=== PATIENT | female | born 1955 | race Caucasian/White ===

== ENCOUNTER 2021-03-05 08:08 | Inpatient (IN) ==
[2021-03-06] MEDS ORDERED: lisinopriL 5 MG TABLET PO PRN (13:53)
[2021-03-06] MEDS ORDERED: Famotidine 20 MG TABLET PO SCH (17:00)
[2021-03-06] MEDS ORDERED: carvediloL 6.25 MG TABLET PO SCH (17:00)
[2021-03-06] MEDS ORDERED: Hydrocortisone Rectal 2.5% CRM 28 GM TUBE RC PRN (17:45)
[2021-03-06] MEDS: carvediloL 6.25 MG TABLET PO SCH (17:54)
[2021-03-06] MEDS ORDERED: hydrOXYzine pamoate 25 MG CAPSULE PO PRN (17:56)
[2021-03-06] MEDS: Famotidine 20 MG TABLET PO SCH (21:06)
[2021-03-06] MEDS: Melatonin 3 MG TABLET PO SCH (21:06)
[2021-03-06] MEDS: Methyl Salicylate/Menthol 85 APPL/85 GM TUBE TP PRN (21:07)
[2021-03-06] MEDS: Mirtazapine 15 MG TABLET PO SCH (21:07)
[2021-03-07] MEDS: Acetaminophen 325 MG TABLET PO PRN ×2 (03:09→20:35)
[2021-03-07] MEDS: lisinopriL 5 MG TABLET PO SCH (07:57)
[2021-03-07] MEDS: FLUoxetine 20 MG CAPSULE PO SCH (07:57)
[2021-03-07] MEDS: Aspirin Enteric Coated 81 MG Tablet PO SCH (07:57)
[2021-03-07] MEDS: Famotidine 20 MG TABLET PO SCH ×2 (07:57→20:33)
[2021-03-07] MEDS: carvediloL 6.25 MG TABLET PO SCH ×2 (07:58→16:46)
[2021-03-07] MEDS: Temazepam 15 MG CAPSULE PO PRN (20:33)
[2021-03-07] MEDS: Melatonin 3 MG TABLET PO SCH (20:33)
[2021-03-07] MEDS: Mirtazapine 15 MG TABLET PO SCH (20:33)
[2021-03-07] MEDS: Methyl Salicylate/Menthol 85 APPL/85 GM TUBE TP PRN (20:34)
[2021-03-08] MEDS: lisinopriL 5 MG TABLET PO SCH (09:01)
[2021-03-08] MEDS: Aspirin Enteric Coated 81 MG Tablet PO SCH (09:01)
[2021-03-08] MEDS: FLUoxetine 20 MG CAPSULE PO SCH (09:01)
[2021-03-08] MEDS: carvediloL 6.25 MG TABLET PO SCH ×2 (09:04→16:45)
[2021-03-08] MEDS: Famotidine 20 MG TABLET PO SCH ×2 (09:04→20:57)
[2021-03-08] MEDS: Acetaminophen 325 MG TABLET PO PRN (11:32)
[2021-03-08] MEDS: Mirtazapine 15 MG TABLET PO SCH (20:57)
[2021-03-08] MEDS: Melatonin 3 MG TABLET PO SCH (20:57)
[2021-03-08] MEDS: Temazepam 15 MG CAPSULE PO PRN (20:57)
[2021-03-09] MEDS: lisinopriL 5 MG TABLET PO SCH (08:50)
[2021-03-09] MEDS: Aspirin Enteric Coated 81 MG Tablet PO SCH (08:51)
[2021-03-09] MEDS: FLUoxetine 20 MG CAPSULE PO SCH (08:51)
[2021-03-09] MEDS: Gabapentin 100 MG CAPSULE PO SCH ×3 (08:51→20:29)
[2021-03-09] MEDS: carvediloL 6.25 MG TABLET PO SCH ×2 (08:51→16:35)
[2021-03-09] MEDS: Famotidine 20 MG TABLET PO SCH ×2 (08:51→20:29)
[2021-03-09] MEDS: Acetaminophen 325 MG TABLET PO PRN (18:30)
[2021-03-09] MEDS: Melatonin 3 MG TABLET PO SCH (20:31)
[2021-03-09] MEDS: Mirtazapine 15 MG TABLET PO SCH (20:31)
[2021-03-10 08:06] LABS: Hematocrit 41.7 % (35.3-44.9); Mean Corpuscular HGB Conc 33.6 g/dL (31.6-35.5); Mean Corpuscular Hemoglobin 29.9 pg (28.0-33.3); Mean Corpuscular Volume 88.9 fL (83.0-100.0); Platelet Count 450 K/mcL (140-400); Red Blood Count 4.69 M/mcL (3.82-4.97); White Blood Count 9.6 K/mcL (4.3-11.1)
[2021-03-10 08:20] LABS: BUN/Creatinine Ratio 26 (6-26); Blood Urea Nitrogen 16 mg/dL (8-23); Calcium 9.6 mg/dL (8.6-10.3); Carbon Dioxide 27 mEq/L (23-29); Chloride 100 mEq/L (98-107); Glucose 110 mg/dL (70-105); Osmolality,Calculated 284 (280-300); Potassium 3.9 mEq/L (3.5-5.1); Sodium 136 mEq/L (136-145); eGFR For African Americans > 60 (> 60); eGFR For Non-African Americans > 60 (> 60)
[2021-03-10] MEDS: Famotidine 20 MG TABLET PO SCH ×2 (08:23→21:51)
[2021-03-10] MEDS: FLUoxetine 20 MG CAPSULE PO SCH (08:23)
[2021-03-10] MEDS: carvediloL 6.25 MG TABLET PO SCH ×2 (08:23→16:27)
[2021-03-10] MEDS: Gabapentin 100 MG CAPSULE PO SCH ×3 (08:23→21:50)
[2021-03-10] MEDS: Ergocalciferol (VIT D2) 50,000 UNIT (1.25MG) CAP PO SCH (08:23)
[2021-03-10] MEDS: Aspirin Enteric Coated 81 MG Tablet PO SCH (08:23)
[2021-03-10] MEDS: lisinopriL 5 MG TABLET PO SCH (08:23)
[2021-03-10] MEDS: Acetaminophen 325 MG TABLET PO PRN (13:05)
[2021-03-10] MEDS: Temazepam 15 MG CAPSULE PO PRN (21:51)
[2021-03-10] MEDS: Melatonin 3 MG TABLET PO SCH (21:51)
[2021-03-10] MEDS: Mirtazapine 15 MG TABLET PO SCH (21:51)
[2021-03-11] MEDS: Aspirin Enteric Coated 81 MG Tablet PO SCH (08:05)
[2021-03-11] MEDS: Gabapentin 100 MG CAPSULE PO SCH ×3 (08:05→21:38)
[2021-03-11] MEDS: Famotidine 20 MG TABLET PO SCH ×2 (08:05→21:38)
[2021-03-11] MEDS: FLUoxetine 20 MG CAPSULE PO SCH (08:06)
[2021-03-11] MEDS: Psyllium 1 PACKET POWD.PACK PO SCH ×3 (08:06→21:39)
[2021-03-11] MEDS: lisinopriL 5 MG TABLET PO SCH (08:06)
[2021-03-11] MEDS: carvediloL 6.25 MG TABLET PO SCH ×2 (08:06→15:58)
[2021-03-11] MEDS: Acetaminophen 325 MG TABLET PO PRN (09:35)
[2021-03-11] MEDS: Melatonin 3 MG TABLET PO SCH (21:38)
[2021-03-11] MEDS: Mirtazapine 15 MG TABLET PO SCH (21:41)
[2021-03-12] MEDS: Gabapentin 100 MG CAPSULE PO SCH ×3 (09:13→20:00)
[2021-03-12] MEDS: carvediloL 6.25 MG TABLET PO SCH ×2 (09:14→16:42)
[2021-03-12] MEDS: FLUoxetine 20 MG CAPSULE PO SCH (09:14)
[2021-03-12] MEDS: Famotidine 20 MG TABLET PO SCH ×2 (09:14→20:01)
[2021-03-12] MEDS: Aspirin Enteric Coated 81 MG Tablet PO SCH (09:15)
[2021-03-12] MEDS: Psyllium 1 PACKET POWD.PACK PO SCH ×3 (09:16→20:03)
[2021-03-12] MEDS: polyethylene glycoL 3350 17 GM POWD.PACK PO SCH (10:39)
[2021-03-12] MEDS: lisinopriL 5 MG TABLET PO SCH (10:39)
[2021-03-12] MEDS: Melatonin 3 MG TABLET PO SCH (20:00)
[2021-03-12] MEDS: Sennosides 8.6 MG TABLET PO SCH (20:00)
[2021-03-12] MEDS: Temazepam 15 MG CAPSULE PO PRN (20:00)
[2021-03-12] MEDS: Mirtazapine 15 MG TABLET PO SCH (20:01)
[2021-03-13] MEDS: Gabapentin 100 MG CAPSULE PO SCH ×3 (08:52→20:46)
[2021-03-13] MEDS: Famotidine 20 MG TABLET PO SCH ×2 (08:52→20:47)
[2021-03-13] MEDS: FLUoxetine 20 MG CAPSULE PO SCH (08:52)
[2021-03-13] MEDS: carvediloL 6.25 MG TABLET PO SCH ×2 (08:52→17:34)
[2021-03-13] MEDS: lisinopriL 5 MG TABLET PO SCH (08:52)
[2021-03-13] MEDS: Sennosides 8.6 MG TABLET PO SCH ×2 (08:52→20:47)
[2021-03-13] MEDS: Aspirin Enteric Coated 81 MG Tablet PO SCH (08:52)
[2021-03-13] MEDS: Psyllium 1 PACKET POWD.PACK PO SCH ×3 (08:52→20:47)
[2021-03-13] MEDS: polyethylene glycoL 3350 17 GM POWD.PACK PO SCH (09:00)
[2021-03-13] MEDS: Mirtazapine 15 MG TABLET PO SCH ×2 (20:47→23:27)
[2021-03-13] MEDS: Melatonin 3 MG TABLET PO SCH (20:47)
[2021-03-13] MEDS: Temazepam 15 MG CAPSULE PO PRN (20:53)
[2021-03-14] MEDS: Aspirin Enteric Coated 81 MG Tablet PO SCH (08:38)
[2021-03-14] MEDS: FLUoxetine 20 MG CAPSULE PO SCH (08:38)
[2021-03-14] MEDS: carvediloL 6.25 MG TABLET PO SCH ×2 (08:38→16:09)
[2021-03-14] MEDS: lisinopriL 5 MG TABLET PO SCH (08:38)
[2021-03-14] MEDS: Sennosides 8.6 MG TABLET PO SCH ×2 (08:38→21:15)
[2021-03-14] MEDS: polyethylene glycoL 3350 17 GM POWD.PACK PO SCH (08:39)
[2021-03-14] MEDS: Psyllium 1 PACKET POWD.PACK PO SCH ×3 (08:39→21:26)
[2021-03-14] MEDS: Famotidine 20 MG TABLET PO SCH ×2 (08:39→21:26)
[2021-03-14] MEDS: Gabapentin 100 MG CAPSULE PO SCH ×3 (08:39→21:26)
[2021-03-14] MEDS: Mirtazapine 15 MG TABLET PO SCH (21:14)
[2021-03-14] MEDS: Temazepam 15 MG CAPSULE PO PRN (21:26)
[2021-03-14] MEDS: Melatonin 3 MG TABLET PO SCH (21:26)
[2021-03-15 08:18] LABS: Basophils # 0.1 K/mcL (0.0-0.2); Basophils % 0.8 %; Eosinophils # 0.2 K/mcL (0.0-0.6); Eosinophils % 2.8 %; Hematocrit 36.3 % (35.3-44.9); Hemoglobin 12.1 g/dL (11.5-15.4); Immature Granulocytes % 0.3 % (0-4); Lymphocytes # 2.4 K/mcL (0.6-4.6); Lymphocytes % 38.4 %; Mean Corpuscular HGB Conc 33.3 g/dL (31.6-35.5); Mean Corpuscular Hemoglobin 30.1 pg (28.0-33.3); Mean Corpuscular Volume 90.3 fL (83.0-100.0); Mean Platelet Volume 10.8 fL (9.4-12.4); Monocytes # 0.5 K/mcL (0.0-1.3); Monocytes % 8.7 %; Platelet Count 242 K/mcL (140-400); Red Blood Count 4.02 M/mcL (3.82-4.97); Red Cell Distribution Width 13.1 % (11.5-14.5); White Blood Count 6.1 K/mcL (4.3-11.1)
[2021-03-15 08:59] LABS: BUN/Creatinine Ratio 15 (6-26); Blood Urea Nitrogen 9 mg/dL (8-23); Carbon Dioxide 26 mEq/L (23-29); Chloride 105 mEq/L (98-107); Glucose 98 mg/dL (70-105); Osmolality,Calculated 289 (280-300); Potassium 4.2 mEq/L (3.5-5.1); Sodium 140 mEq/L (136-145); eGFR For African Americans > 60 (> 60); eGFR For Non-African Americans > 60 (> 60)
[2021-03-15] MEDS: Aspirin Enteric Coated 81 MG Tablet PO SCH (09:05)
[2021-03-15] MEDS: FLUoxetine 20 MG CAPSULE PO SCH (09:05)
[2021-03-15] MEDS: Gabapentin 100 MG CAPSULE PO SCH ×3 (09:05→20:10)
[2021-03-15] MEDS: carvediloL 6.25 MG TABLET PO SCH ×2 (09:06→15:03)
[2021-03-15] MEDS: Sennosides 8.6 MG TABLET PO SCH ×2 (09:06→20:11)
[2021-03-15] MEDS: lisinopriL 5 MG TABLET PO SCH (09:06)
[2021-03-15] MEDS: Famotidine 20 MG TABLET PO SCH ×2 (09:06→20:10)
[2021-03-15] MEDS: Psyllium 1 PACKET POWD.PACK PO SCH ×3 (09:07→20:11)
[2021-03-15] MEDS: polyethylene glycoL 3350 17 GM POWD.PACK PO SCH (09:11)
[2021-03-15] MEDS: Mirtazapine 15 MG TABLET PO SCH (19:58)
[2021-03-15] MEDS: Melatonin 3 MG TABLET PO SCH (20:10)
[2021-03-15] MEDS: Temazepam 15 MG CAPSULE PO PRN (20:10)
[2021-03-16] MEDS: Sennosides 8.6 MG TABLET PO SCH ×2 (08:52→21:40)
[2021-03-16] MEDS: lisinopriL 5 MG TABLET PO SCH (08:52)
[2021-03-16] MEDS: FLUoxetine 20 MG CAPSULE PO SCH (08:52)
[2021-03-16] MEDS: Famotidine 20 MG TABLET PO SCH ×2 (08:52→21:39)
[2021-03-16] MEDS: carvediloL 6.25 MG TABLET PO SCH ×2 (08:53→17:24)
[2021-03-16] MEDS: Aspirin Enteric Coated 81 MG Tablet PO SCH (08:53)
[2021-03-16] MEDS: Gabapentin 100 MG CAPSULE PO SCH ×3 (08:53→21:39)
[2021-03-16] MEDS: polyethylene glycoL 3350 17 GM POWD.PACK PO SCH (08:54)
[2021-03-16] MEDS: Psyllium 1 PACKET POWD.PACK PO SCH ×3 (08:57→21:40)
[2021-03-16] MEDS: Melatonin 3 MG TABLET PO SCH (21:39)
[2021-03-16] MEDS: Temazepam 15 MG CAPSULE PO PRN (21:39)
[2021-03-16] MEDS: Mirtazapine 15 MG TABLET PO SCH (21:40)
[2021-03-17] MEDS: Famotidine 20 MG TABLET PO SCH ×2 (08:46→20:21)
[2021-03-17] MEDS: Gabapentin 100 MG CAPSULE PO SCH ×3 (08:46→20:21)
[2021-03-17] MEDS: Sennosides 8.6 MG TABLET PO SCH ×2 (08:46→20:21)
[2021-03-17] MEDS: FLUoxetine 20 MG CAPSULE PO SCH (08:47)
[2021-03-17] MEDS: lisinopriL 5 MG TABLET PO SCH (08:47)
[2021-03-17] MEDS: carvediloL 6.25 MG TABLET PO SCH ×2 (08:47→16:54)
[2021-03-17] MEDS: Psyllium 1 PACKET POWD.PACK PO SCH ×3 (08:48→20:22)
[2021-03-17] MEDS: Aspirin Enteric Coated 81 MG Tablet PO SCH (08:48)
[2021-03-17] MEDS: polyethylene glycoL 3350 17 GM POWD.PACK PO SCH (08:49)
[2021-03-17] MEDS: Ergocalciferol (VIT D2) 50,000 UNIT (1.25MG) CAP PO SCH (08:54)
[2021-03-17] MEDS: Hydrocortisone Acetate 25 MG RECTAL SUPPOSITORY RC SCH ×2 (09:25→20:22)
[2021-03-17] MEDS: Temazepam 15 MG CAPSULE PO PRN (20:21)
[2021-03-17] MEDS: Melatonin 3 MG TABLET PO SCH (20:21)
[2021-03-17] MEDS: Mirtazapine 15 MG TABLET PO SCH (20:22)
[2021-03-18] MEDS: polyethylene glycoL 3350 17 GM POWD.PACK PO SCH (09:30)
[2021-03-18] MEDS: carvediloL 6.25 MG TABLET PO SCH ×2 (09:31→16:02)
[2021-03-18] MEDS: lisinopriL 5 MG TABLET PO SCH (09:31)
[2021-03-18] MEDS: Psyllium 1 PACKET POWD.PACK PO SCH ×3 (09:31→20:32)
[2021-03-18] MEDS: FLUoxetine 20 MG CAPSULE PO SCH (09:31)
[2021-03-18] MEDS: Gabapentin 100 MG CAPSULE PO SCH ×3 (09:32→20:33)
[2021-03-18] MEDS: Sennosides 8.6 MG TABLET PO SCH ×2 (09:33→20:33)
[2021-03-18] MEDS: Aspirin Enteric Coated 81 MG Tablet PO SCH (09:33)
[2021-03-18] MEDS: Famotidine 20 MG TABLET PO SCH ×2 (09:33→20:33)
[2021-03-18] MEDS: Hydrocortisone Acetate 25 MG RECTAL SUPPOSITORY RC SCH (12:51)
[2021-03-18] MEDS: Melatonin 3 MG TABLET PO SCH (21:42)
[2021-03-18] MEDS: Temazepam 15 MG CAPSULE PO PRN (21:42)
[2021-03-19] MEDS: lisinopriL 5 MG TABLET PO SCH (08:56)
[2021-03-19] MEDS: carvediloL 6.25 MG TABLET PO SCH ×2 (08:56→16:00)
[2021-03-19] MEDS: Aspirin Enteric Coated 81 MG Tablet PO SCH (08:56)
[2021-03-19] MEDS: Gabapentin 100 MG CAPSULE PO SCH ×3 (08:56→20:15)
[2021-03-19] MEDS: FLUoxetine 20 MG CAPSULE PO SCH (08:57)
[2021-03-19] MEDS: Psyllium 1 PACKET POWD.PACK PO SCH ×3 (08:57→20:13)
[2021-03-19] MEDS: Sennosides 8.6 MG TABLET PO SCH ×2 (08:57→20:14)
[2021-03-19] MEDS: Famotidine 20 MG TABLET PO SCH ×2 (08:57→20:15)
[2021-03-19] MEDS: polyethylene glycoL 3350 17 GM POWD.PACK PO SCH (08:57)
[2021-03-19] MEDS: Bisacodyl 10 MG RECTAL SUPPOSITORY RC PRN (10:03)
[2021-03-19] MEDS: Temazepam 15 MG CAPSULE PO PRN (20:15)
[2021-03-19] MEDS: Melatonin 3 MG TABLET PO SCH (20:15)
[2021-03-20] MEDS: Sennosides 8.6 MG TABLET PO SCH ×2 (09:08→21:14)
[2021-03-20] MEDS: Famotidine 20 MG TABLET PO SCH ×2 (09:09→21:13)
[2021-03-20] MEDS: carvediloL 6.25 MG TABLET PO SCH ×2 (09:09→15:58)
[2021-03-20] MEDS: Gabapentin 100 MG CAPSULE PO SCH ×3 (09:10→21:14)
[2021-03-20] MEDS: FLUoxetine 20 MG CAPSULE PO SCH (09:10)
[2021-03-20] MEDS: Aspirin Enteric Coated 81 MG Tablet PO SCH (09:11)
[2021-03-20] MEDS: lisinopriL 5 MG TABLET PO SCH (09:11)
[2021-03-20] MEDS: Psyllium 1 PACKET POWD.PACK PO SCH ×3 (09:13→21:14)
[2021-03-20] MEDS: polyethylene glycoL 3350 17 GM POWD.PACK PO SCH (09:13)
[2021-03-20] MEDS: Melatonin 3 MG TABLET PO SCH (21:13)
[2021-03-20] MEDS: Temazepam 15 MG CAPSULE PO PRN (21:13)
[2021-03-21] MEDS: carvediloL 6.25 MG TABLET PO SCH ×2 (10:05→16:20)
[2021-03-21] MEDS: lisinopriL 5 MG TABLET PO SCH (10:05)
[2021-03-21] MEDS: Gabapentin 100 MG CAPSULE PO SCH ×3 (10:05→19:23)
[2021-03-21] MEDS: Famotidine 20 MG TABLET PO SCH ×2 (10:05→19:23)
[2021-03-21] MEDS: Sennosides 8.6 MG TABLET PO SCH ×2 (10:05→19:25)
[2021-03-21] MEDS: FLUoxetine 20 MG CAPSULE PO SCH (10:05)
[2021-03-21] MEDS: Aspirin Enteric Coated 81 MG Tablet PO SCH (10:05)
[2021-03-21] MEDS: polyethylene glycoL 3350 17 GM POWD.PACK PO SCH (10:10)
[2021-03-21] MEDS: Psyllium 1 PACKET POWD.PACK PO SCH ×3 (10:10→19:24)
[2021-03-21] MEDS: Temazepam 15 MG CAPSULE PO PRN (19:23)
[2021-03-21] MEDS: Melatonin 3 MG TABLET PO SCH (19:23)
[2021-03-22] MEDS: polyethylene glycoL 3350 17 GM POWD.PACK PO SCH (08:24)
[2021-03-22] MEDS: Psyllium 1 PACKET POWD.PACK PO SCH ×3 (08:24→20:02)
[2021-03-22] MEDS: lisinopriL 5 MG TABLET PO SCH (08:24)
[2021-03-22] MEDS: Sennosides 8.6 MG TABLET PO SCH ×2 (08:25→20:02)
[2021-03-22] MEDS: Famotidine 20 MG TABLET PO SCH ×2 (08:25→20:01)
[2021-03-22] MEDS: Aspirin Enteric Coated 81 MG Tablet PO SCH (08:25)
[2021-03-22] MEDS: Gabapentin 100 MG CAPSULE PO SCH ×3 (08:25→20:01)
[2021-03-22] MEDS: carvediloL 6.25 MG TABLET PO SCH ×2 (08:25→17:04)
[2021-03-22] MEDS: FLUoxetine 20 MG CAPSULE PO SCH (08:25)
[2021-03-22] MEDS: Sucralfate 1 GM TABLET PO SCH ×3 (13:27→21:00)
[2021-03-22] MEDS: Temazepam 15 MG CAPSULE PO PRN (20:01)
[2021-03-22] MEDS: Melatonin 3 MG TABLET PO SCH (20:02)
[2021-03-23] MEDS: polyethylene glycoL 3350 17 GM POWD.PACK PO SCH (08:29)
[2021-03-23] MEDS: Psyllium 1 PACKET POWD.PACK PO SCH ×3 (08:29→21:05)
[2021-03-23] MEDS: FLUoxetine 20 MG CAPSULE PO SCH (08:30)
[2021-03-23] MEDS: Aspirin Enteric Coated 81 MG Tablet PO SCH (08:30)
[2021-03-23] MEDS: Sucralfate 1 GM TABLET PO SCH ×4 (08:30→21:06)
[2021-03-23] MEDS: Sennosides 8.6 MG TABLET PO SCH ×2 (08:30→21:05)
[2021-03-23] MEDS: lisinopriL 5 MG TABLET PO SCH (08:31)
[2021-03-23] MEDS: Famotidine 20 MG TABLET PO SCH ×2 (08:32→21:06)
[2021-03-23] MEDS: carvediloL 6.25 MG TABLET PO SCH ×2 (08:32→16:33)
[2021-03-23] MEDS: Gabapentin 100 MG CAPSULE PO SCH ×3 (08:32→21:06)
[2021-03-23] MEDS: Melatonin 3 MG TABLET PO SCH (21:05)
[2021-03-23] MEDS: Temazepam 15 MG CAPSULE PO PRN (21:13)
[2021-03-24] MEDS: Sennosides 8.6 MG TABLET PO SCH ×2 (08:06→20:40)
[2021-03-24] MEDS: Aspirin Enteric Coated 81 MG Tablet PO SCH (08:07)
[2021-03-24] MEDS: carvediloL 6.25 MG TABLET PO SCH ×2 (08:07→16:13)
[2021-03-24] MEDS: lisinopriL 5 MG TABLET PO SCH (08:07)
[2021-03-24] MEDS: polyethylene glycoL 3350 17 GM POWD.PACK PO SCH (08:07)
[2021-03-24] MEDS: Gabapentin 100 MG CAPSULE PO SCH ×3 (08:07→20:40)
[2021-03-24] MEDS: FLUoxetine 20 MG CAPSULE PO SCH (08:07)
[2021-03-24] MEDS: Psyllium 1 PACKET POWD.PACK PO SCH ×3 (08:07→20:40)
[2021-03-24] MEDS: Sucralfate 1 GM TABLET PO SCH ×4 (08:10→21:52)
[2021-03-24] MEDS: Ergocalciferol (VIT D2) 50,000 UNIT (1.25MG) CAP PO SCH (08:15)
[2021-03-24] MEDS: Bisacodyl 10 MG RECTAL SUPPOSITORY RC PRN (16:13)
[2021-03-24] MEDS: Melatonin 3 MG TABLET PO SCH (20:41)
[2021-03-24] MEDS: Temazepam 15 MG CAPSULE PO PRN (23:10)
[2021-03-25] MEDS: Sennosides 8.6 MG TABLET PO SCH ×2 (07:50→20:23)
[2021-03-25] MEDS: Gabapentin 100 MG CAPSULE PO SCH ×3 (07:50→20:26)
[2021-03-25] MEDS: polyethylene glycoL 3350 17 GM POWD.PACK PO SCH (07:50)
[2021-03-25] MEDS: Psyllium 1 PACKET POWD.PACK PO SCH ×3 (07:50→20:23)
[2021-03-25] MEDS: FLUoxetine 20 MG CAPSULE PO SCH (07:50)
[2021-03-25] MEDS: Aspirin Enteric Coated 81 MG Tablet PO SCH (07:50)
[2021-03-25] MEDS: lisinopriL 5 MG TABLET PO SCH (07:51)
[2021-03-25] MEDS: carvediloL 6.25 MG TABLET PO SCH ×2 (07:51→16:48)
[2021-03-25] MEDS: Sucralfate 1 GM TABLET PO SCH (07:51)
[2021-03-25] MEDS: Temazepam 15 MG CAPSULE PO PRN (20:24)
[2021-03-25] MEDS: Melatonin 3 MG TABLET PO SCH (20:26)
[2021-03-26] MEDS: Sennosides 8.6 MG TABLET PO SCH ×2 (07:59→20:53)
[2021-03-26] MEDS: carvediloL 6.25 MG TABLET PO SCH ×2 (07:59→16:32)
[2021-03-26] MEDS: lisinopriL 5 MG TABLET PO SCH (07:59)
[2021-03-26] MEDS: polyethylene glycoL 3350 17 GM POWD.PACK PO SCH (07:59)
[2021-03-26] MEDS: FLUoxetine 20 MG CAPSULE PO SCH (07:59)
[2021-03-26] MEDS: Psyllium 1 PACKET POWD.PACK PO SCH ×3 (07:59→20:53)
[2021-03-26] MEDS: Gabapentin 100 MG CAPSULE PO SCH ×3 (07:59→20:53)
[2021-03-26] MEDS: Aspirin Enteric Coated 81 MG Tablet PO SCH (07:59)
[2021-03-26] MEDS: Temazepam 15 MG CAPSULE PO PRN (20:52)
[2021-03-26] MEDS: *HR* HYDROcodone/Acet 5/325 mg TABLET PO PRN (20:52)
[2021-03-26] MEDS: Melatonin 3 MG TABLET PO SCH (20:53)
[2021-03-27] MEDS: lisinopriL 5 MG TABLET PO SCH (09:28)
[2021-03-27] MEDS: polyethylene glycoL 3350 17 GM POWD.PACK PO SCH (09:28)
[2021-03-27] MEDS: Psyllium 1 PACKET POWD.PACK PO SCH ×3 (09:28→20:45)
[2021-03-27] MEDS: Sennosides 8.6 MG TABLET PO SCH ×2 (09:29→20:45)
[2021-03-27] MEDS: Aspirin Enteric Coated 81 MG Tablet PO SCH (09:29)
[2021-03-27] MEDS: FLUoxetine 20 MG CAPSULE PO SCH (09:29)
[2021-03-27] MEDS: Gabapentin 100 MG CAPSULE PO SCH ×3 (09:29→20:45)
[2021-03-27] MEDS: carvediloL 6.25 MG TABLET PO SCH ×2 (09:29→17:14)
[2021-03-27] MEDS: Temazepam 15 MG CAPSULE PO PRN (20:44)
[2021-03-27] MEDS: Melatonin 3 MG TABLET PO SCH (20:45)
[2021-03-28] MEDS: *HR* HYDROcodone/Acet 5/325 mg TABLET PO PRN ×2 (00:22→18:12)
[2021-03-28 08:13] LABS: Basophils % 0.7 %; Eosinophils # 0.2 K/mcL (0.0-0.6); Eosinophils % 2.9 %; Hematocrit 38.1 % (35.3-44.9); Hemoglobin 12.5 g/dL (11.5-15.4); Immature Granulocytes % 0.7 % (0-4); Lymphocytes # 2.5 K/mcL (0.6-4.6); Lymphocytes % 42.1 %; Mean Corpuscular HGB Conc 32.8 g/dL (31.6-35.5); Mean Corpuscular Hemoglobin 29.9 pg (28.0-33.3); Mean Corpuscular Volume 91.1 fL (83.0-100.0); Mean Platelet Volume 10.3 fL (9.4-12.4); Monocytes # 0.4 K/mcL (0.0-1.3); Monocytes % 6.4 %; Neutrophils # 2.8 K/mcL (1.6-8.9); Platelet Count 149 K/mcL (140-400); Red Blood Count 4.18 M/mcL (3.82-4.97); Red Cell Distribution Width 13.2 % (11.5-14.5); Segmented Neutrophils % 47.2 %; White Blood Count 5.8 K/mcL (4.3-11.1)
[2021-03-28 08:28] LABS: BUN/Creatinine Ratio 15 (6-26); Blood Urea Nitrogen 9 mg/dL (8-23); Calcium 8.8 mg/dL (8.6-10.3); Carbon Dioxide 29 mEq/L (23-29); Chloride 104 mEq/L (98-107); Glucose 96 mg/dL (70-105); Osmolality,Calculated 287 (280-300); Potassium 4.1 mEq/L (3.5-5.1); Sodium 139 mEq/L (136-145); eGFR For African Americans > 60 (> 60); eGFR For Non-African Americans > 60 (> 60)
[2021-03-28] MEDS: Psyllium 1 PACKET POWD.PACK PO SCH ×3 (09:35→20:53)
[2021-03-28] MEDS: carvediloL 6.25 MG TABLET PO SCH ×2 (09:35→17:08)
[2021-03-28] MEDS: polyethylene glycoL 3350 17 GM POWD.PACK PO SCH (09:35)
[2021-03-28] MEDS: lisinopriL 5 MG TABLET PO SCH (09:36)
[2021-03-28] MEDS: Aspirin Enteric Coated 81 MG Tablet PO SCH (09:36)
[2021-03-28] MEDS: Sennosides 8.6 MG TABLET PO SCH ×2 (09:36→20:53)
[2021-03-28] MEDS: FLUoxetine 20 MG CAPSULE PO SCH (09:37)
[2021-03-28] MEDS: Gabapentin 100 MG CAPSULE PO SCH ×3 (09:37→20:53)
[2021-03-28] MEDS: Melatonin 3 MG TABLET PO SCH (20:53)
[2021-03-28] MEDS: Temazepam 15 MG CAPSULE PO PRN (20:53)
[2021-03-29] MEDS: *HR* HYDROcodone/Acet 5/325 mg TABLET PO PRN ×3 (03:12→20:47)
[2021-03-29] MEDS: polyethylene glycoL 3350 17 GM POWD.PACK PO SCH (09:06)
[2021-03-29] MEDS: Psyllium 1 PACKET POWD.PACK PO SCH ×3 (09:06→20:47)
[2021-03-29] MEDS: Sennosides 8.6 MG TABLET PO SCH ×2 (09:08→20:47)
[2021-03-29] MEDS: Aspirin Enteric Coated 81 MG Tablet PO SCH (09:09)
[2021-03-29] MEDS: carvediloL 6.25 MG TABLET PO SCH ×2 (09:10→17:35)
[2021-03-29] MEDS: Gabapentin 100 MG CAPSULE PO SCH ×3 (09:10→20:47)
[2021-03-29] MEDS: FLUoxetine 20 MG CAPSULE PO SCH (09:10)
[2021-03-29] MEDS: lisinopriL 5 MG TABLET PO SCH (10:32)
[2021-03-29] MEDS: Melatonin 3 MG TABLET PO SCH (20:47)
[2021-03-29] MEDS: Temazepam 15 MG CAPSULE PO PRN (20:47)
[2021-03-30] MEDS: *HR* HYDROcodone/Acet 5/325 mg TABLET PO PRN ×3 (05:12→20:22)
[2021-03-30] MEDS: Sennosides 8.6 MG TABLET PO SCH ×2 (09:10→20:22)
[2021-03-30] MEDS: Aspirin Enteric Coated 81 MG Tablet PO SCH (09:10)
[2021-03-30] MEDS: Gabapentin 100 MG CAPSULE PO SCH ×3 (09:11→20:23)
[2021-03-30] MEDS: lisinopriL 5 MG TABLET PO SCH (09:11)
[2021-03-30] MEDS: Psyllium 1 PACKET POWD.PACK PO SCH ×3 (09:12→20:24)
[2021-03-30] MEDS: carvediloL 6.25 MG TABLET PO SCH ×2 (09:12→17:18)
[2021-03-30] MEDS: polyethylene glycoL 3350 17 GM POWD.PACK PO SCH (09:12)
[2021-03-30] MEDS: FLUoxetine 20 MG CAPSULE PO SCH (09:16)
[2021-03-30] MEDS: Temazepam 15 MG CAPSULE PO PRN (20:22)
[2021-03-30] MEDS: Melatonin 3 MG TABLET PO SCH (20:23)
[2021-03-31] MEDS: Sennosides 8.6 MG TABLET PO SCH ×2 (08:31→20:54)
[2021-03-31] MEDS: FLUoxetine HCl 10 MG CAPSULE PO SCH (08:31)
[2021-03-31] MEDS: Gabapentin 100 MG CAPSULE PO SCH ×3 (08:32→20:54)
[2021-03-31] MEDS: carvediloL 6.25 MG TABLET PO SCH ×2 (08:32→16:35)
[2021-03-31] MEDS: lisinopriL 5 MG TABLET PO SCH (08:33)
[2021-03-31] MEDS: Psyllium 1 PACKET POWD.PACK PO SCH ×3 (08:33→20:55)
[2021-03-31] MEDS: Aspirin Enteric Coated 81 MG Tablet PO SCH (08:33)
[2021-03-31] MEDS: polyethylene glycoL 3350 17 GM POWD.PACK PO SCH (08:34)
[2021-03-31] MEDS: Ergocalciferol (VIT D2) 50,000 UNIT (1.25MG) CAP PO SCH (08:41)
[2021-03-31] MEDS: *HR* HYDROcodone/Acet 5/325 mg TABLET PO PRN ×2 (08:42→17:38)
[2021-03-31] MEDS: Neosporin OINT 15 GM TUBE TP SCH ×2 (12:08→20:54)
[2021-03-31] MEDS: Melatonin 3 MG TABLET PO SCH (20:54)
[2021-03-31] MEDS: Temazepam 15 MG CAPSULE PO PRN (20:54)
[2021-04-01] MEDS: *HR* HYDROcodone/Acet 5/325 mg TABLET PO PRN ×3 (01:43→17:14)
[2021-04-01] MEDS: Sennosides 8.6 MG TABLET PO SCH ×2 (08:36→20:54)
[2021-04-01] MEDS: FLUoxetine HCl 10 MG CAPSULE PO SCH (08:36)
[2021-04-01] MEDS: lisinopriL 5 MG TABLET PO SCH (08:36)
[2021-04-01] MEDS: carvediloL 6.25 MG TABLET PO SCH ×2 (08:36→17:14)
[2021-04-01] MEDS: Gabapentin 100 MG CAPSULE PO SCH ×3 (08:37→20:58)
[2021-04-01] MEDS: Psyllium 1 PACKET POWD.PACK PO SCH ×3 (08:37→20:54)
[2021-04-01] MEDS: polyethylene glycoL 3350 17 GM POWD.PACK PO SCH (08:37)
[2021-04-01] MEDS: Aspirin Enteric Coated 81 MG Tablet PO SCH (08:37)
[2021-04-01] MEDS: Neosporin OINT 15 GM TUBE TP SCH ×2 (08:44→20:59)
[2021-04-01] MEDS: Melatonin 3 MG TABLET PO SCH (20:58)
[2021-04-01] MEDS: Temazepam 15 MG CAPSULE PO PRN (20:58)
[2021-04-02] MEDS: *HR* HYDROcodone/Acet 5/325 mg TABLET PO PRN ×4 (00:58→23:56)
[2021-04-02] MEDS: FLUoxetine HCl 10 MG CAPSULE PO SCH (08:45)
[2021-04-02] MEDS: Psyllium 1 PACKET POWD.PACK PO SCH ×3 (08:53→20:35)
[2021-04-02] MEDS: Aspirin Enteric Coated 81 MG Tablet PO SCH (08:53)
[2021-04-02] MEDS: polyethylene glycoL 3350 17 GM POWD.PACK PO SCH (08:53)
[2021-04-02] MEDS: Sennosides 8.6 MG TABLET PO SCH ×2 (08:53→20:34)
[2021-04-02] MEDS: carvediloL 6.25 MG TABLET PO SCH ×2 (08:54→15:47)
[2021-04-02] MEDS: Gabapentin 100 MG CAPSULE PO SCH ×3 (08:54→20:34)
[2021-04-02] MEDS: lisinopriL 5 MG TABLET PO SCH (08:54)
[2021-04-02] MEDS: Neosporin OINT 15 GM TUBE TP SCH ×2 (13:08→20:36)
[2021-04-02] MEDS: Temazepam 15 MG CAPSULE PO PRN (20:34)
[2021-04-02] MEDS: Melatonin 3 MG TABLET PO SCH (20:34)
[2021-04-03] MEDS: *HR* HYDROcodone/Acet 5/325 mg TABLET PO PRN ×3 (06:02→18:07)
[2021-04-03 07:26] LABS: Basophils % 0.6 %; Eosinophils # 0.1 K/mcL (0.0-0.6); Eosinophils % 2.3 %; Hematocrit 37.3 % (35.3-44.9); Hemoglobin 12.4 g/dL (11.5-15.4); Immature Granulocytes % 0.8 % (0-4); Lymphocytes # 2.3 K/mcL (0.6-4.6); Lymphocytes % 43.7 %; Mean Corpuscular HGB Conc 33.2 g/dL (31.6-35.5); Mean Corpuscular Hemoglobin 30.3 pg (28.0-33.3); Mean Corpuscular Volume 91.2 fL (83.0-100.0); Monocytes # 0.4 K/mcL (0.0-1.3); Monocytes % 7.4 %; Neutrophils # 2.4 K/mcL (1.6-8.9); Platelet Count 156 K/mcL (140-400); Red Blood Count 4.09 M/mcL (3.82-4.97); Red Cell Distribution Width 13.7 % (11.5-14.5); Segmented Neutrophils % 45.2 %; White Blood Count 5.2 K/mcL (4.3-11.1)
[2021-04-03 07:54] LABS: BUN/Creatinine Ratio 19 (6-26); Blood Urea Nitrogen 10 mg/dL (8-23); Carbon Dioxide 28 mEq/L (23-29); Chloride 105 mEq/L (98-107); Glucose 95 mg/dL (70-105); Osmolality,Calculated 289 (280-300); Potassium 3.9 mEq/L (3.5-5.1); Sodium 140 mEq/L (136-145); eGFR For African Americans > 60 (> 60); eGFR For Non-African Americans > 60 (> 60)
[2021-04-03] MEDS: carvediloL 6.25 MG TABLET PO SCH ×2 (08:24→18:06)
[2021-04-03] MEDS: Aspirin Enteric Coated 81 MG Tablet PO SCH (08:24)
[2021-04-03] MEDS: Gabapentin 100 MG CAPSULE PO SCH ×3 (08:24→21:38)
[2021-04-03] MEDS: Sennosides 8.6 MG TABLET PO SCH ×2 (08:24→21:38)
[2021-04-03] MEDS: polyethylene glycoL 3350 17 GM POWD.PACK PO SCH (08:25)
[2021-04-03] MEDS: Psyllium 1 PACKET POWD.PACK PO SCH ×3 (08:25→21:39)
[2021-04-03] MEDS: lisinopriL 5 MG TABLET PO SCH (08:25)
[2021-04-03] MEDS: FLUoxetine HCl 10 MG CAPSULE PO SCH (08:36)
[2021-04-03] MEDS: Neosporin OINT 15 GM TUBE TP SCH ×2 (08:36→21:39)
[2021-04-03] MEDS: Temazepam 15 MG CAPSULE PO PRN (21:38)
[2021-04-03] MEDS: Melatonin 3 MG TABLET PO SCH (21:39)
[2021-04-04] MEDS: Psyllium 1 PACKET POWD.PACK PO SCH ×3 (09:09→21:14)
[2021-04-04] MEDS: Sennosides 8.6 MG TABLET PO SCH ×2 (09:09→21:12)
[2021-04-04] MEDS: *HR* HYDROcodone/Acet 5/325 mg TABLET PO PRN ×2 (09:09→21:10)
[2021-04-04] MEDS: polyethylene glycoL 3350 17 GM POWD.PACK PO SCH (09:09)
[2021-04-04] MEDS: lisinopriL 5 MG TABLET PO SCH (09:09)
[2021-04-04] MEDS: Gabapentin 100 MG CAPSULE PO SCH ×3 (09:10→21:11)
[2021-04-04] MEDS: Aspirin Enteric Coated 81 MG Tablet PO SCH (09:10)
[2021-04-04] MEDS: carvediloL 6.25 MG TABLET PO SCH ×2 (09:10→17:38)
[2021-04-04] MEDS: Neosporin OINT 15 GM TUBE TP SCH ×2 (11:56→21:23)
[2021-04-04] MEDS: Melatonin 3 MG TABLET PO SCH (21:12)
[2021-04-04] MEDS: Temazepam 15 MG CAPSULE PO PRN (21:13)
[2021-04-05] MEDS: FLUoxetine HCl 10 MG CAPSULE PO SCH ×2 (07:55→07:58)
[2021-04-05] MEDS: Gabapentin 100 MG CAPSULE PO SCH ×3 (07:55→21:22)
[2021-04-05] MEDS: lisinopriL 5 MG TABLET PO SCH (07:55)
[2021-04-05] MEDS: carvediloL 6.25 MG TABLET PO SCH ×2 (07:55→16:49)
[2021-04-05] MEDS: Aspirin Enteric Coated 81 MG Tablet PO SCH (07:55)
[2021-04-05] MEDS: Sennosides 8.6 MG TABLET PO SCH ×2 (07:55→21:22)
[2021-04-05] MEDS: polyethylene glycoL 3350 17 GM POWD.PACK PO SCH (07:56)
[2021-04-05] MEDS: Psyllium 1 PACKET POWD.PACK PO SCH ×3 (07:56→20:00)
[2021-04-05] MEDS: *HR* HYDROcodone/Acet 5/325 mg TABLET PO PRN ×2 (08:06→21:22)
[2021-04-05] MEDS: Neosporin OINT 15 GM TUBE TP SCH ×2 (08:08→21:29)
[2021-04-05] MEDS: Melatonin 3 MG TABLET PO SCH (21:22)
[2021-04-05] MEDS: Temazepam 15 MG CAPSULE PO PRN (21:22)
[2021-04-06] MEDS: Aspirin Enteric Coated 81 MG Tablet PO SCH (08:21)
[2021-04-06] MEDS: lisinopriL 5 MG TABLET PO SCH (08:22)
[2021-04-06] MEDS: carvediloL 6.25 MG TABLET PO SCH ×2 (08:22→15:57)
[2021-04-06] MEDS: Sennosides 8.6 MG TABLET PO SCH ×2 (08:22→20:49)
[2021-04-06] MEDS: Psyllium 1 PACKET POWD.PACK PO SCH ×3 (08:23→20:54)
[2021-04-06] MEDS: polyethylene glycoL 3350 17 GM POWD.PACK PO SCH (08:23)
[2021-04-06] MEDS: Gabapentin 100 MG CAPSULE PO SCH ×3 (08:26→20:51)
[2021-04-06] MEDS: Neosporin OINT 15 GM TUBE TP SCH ×2 (08:27→20:52)
[2021-04-06] MEDS: *HR* HYDROcodone/Acet 5/325 mg TABLET PO PRN ×2 (09:40→20:51)
[2021-04-06] MEDS: Temazepam 15 MG CAPSULE PO PRN (20:50)
[2021-04-06] MEDS: Melatonin 3 MG TABLET PO SCH (20:51)
[2021-04-07] MEDS: carvediloL 6.25 MG TABLET PO SCH ×2 (07:53→16:15)
[2021-04-07] MEDS: Sennosides 8.6 MG TABLET PO SCH ×2 (07:53→21:45)
[2021-04-07] MEDS: FLUoxetine HCl 10 MG CAPSULE PO SCH (07:53)
[2021-04-07] MEDS: polyethylene glycoL 3350 17 GM POWD.PACK PO SCH (07:53)
[2021-04-07] MEDS: Psyllium 1 PACKET POWD.PACK PO SCH ×3 (07:53→21:25)
[2021-04-07] MEDS: Gabapentin 100 MG CAPSULE PO SCH ×3 (07:53→21:44)
[2021-04-07] MEDS: lisinopriL 5 MG TABLET PO SCH (07:53)
[2021-04-07] MEDS: Aspirin Enteric Coated 81 MG Tablet PO SCH (07:54)
[2021-04-07] MEDS: Neosporin OINT 15 GM TUBE TP SCH ×2 (08:01→21:47)
[2021-04-07] MEDS: Ergocalciferol (VIT D2) 50,000 UNIT (1.25MG) CAP PO SCH (08:46)
[2021-04-07] MEDS: *HR* HYDROcodone/Acet 5/325 mg TABLET PO PRN ×2 (08:57→21:52)
[2021-04-07] MEDS: Temazepam 15 MG CAPSULE PO PRN (21:45)
[2021-04-07] MEDS: Melatonin 3 MG TABLET PO SCH (21:45)
[2021-04-08] MEDS: Aspirin Enteric Coated 81 MG Tablet PO SCH (09:18)
[2021-04-08] MEDS: Gabapentin 100 MG CAPSULE PO SCH ×3 (09:18→21:03)
[2021-04-08] MEDS: *HR* HYDROcodone/Acet 5/325 mg TABLET PO PRN ×2 (09:19→21:02)
[2021-04-08] MEDS: lisinopriL 5 MG TABLET PO SCH (09:20)
[2021-04-08] MEDS: polyethylene glycoL 3350 17 GM POWD.PACK PO SCH (09:21)
[2021-04-08] MEDS: Psyllium 1 PACKET POWD.PACK PO SCH ×3 (09:21→21:00)
[2021-04-08] MEDS: Sennosides 8.6 MG TABLET PO SCH ×2 (09:21→21:02)
[2021-04-08] MEDS: Neosporin OINT 15 GM TUBE TP SCH ×2 (09:21→21:08)
[2021-04-08] MEDS: carvediloL 6.25 MG TABLET PO SCH ×2 (09:21→16:53)
[2021-04-08] MEDS: Temazepam 15 MG CAPSULE PO PRN (21:01)
[2021-04-08] MEDS: Melatonin 3 MG TABLET PO SCH (21:02)
[2021-04-09] MEDS: FLUoxetine HCl 10 MG CAPSULE PO SCH (08:31)
[2021-04-09] MEDS: polyethylene glycoL 3350 17 GM POWD.PACK PO SCH (08:31)
[2021-04-09] MEDS: lisinopriL 5 MG TABLET PO SCH (08:31)
[2021-04-09] MEDS: Gabapentin 100 MG CAPSULE PO SCH ×3 (08:31→22:14)
[2021-04-09] MEDS: Aspirin Enteric Coated 81 MG Tablet PO SCH (08:31)
[2021-04-09] MEDS: Psyllium 1 PACKET POWD.PACK PO SCH ×3 (08:31→22:06)
[2021-04-09] MEDS: Sennosides 8.6 MG TABLET PO SCH ×2 (08:31→22:14)
[2021-04-09] MEDS: carvediloL 6.25 MG TABLET PO SCH ×2 (08:32→16:11)
[2021-04-09] MEDS: Neosporin OINT 15 GM TUBE TP SCH ×2 (08:32→22:14)
[2021-04-09] MEDS: Acetaminophen 325 MG TABLET PO PRN (12:34)
[2021-04-09] MEDS: Temazepam 15 MG CAPSULE PO PRN (22:14)
[2021-04-09] MEDS: Melatonin 3 MG TABLET PO SCH (22:14)
[2021-04-10] MEDS: Acetaminophen 325 MG TABLET PO PRN (05:12)
[2021-04-10] MEDS: Aspirin Enteric Coated 81 MG Tablet PO SCH (08:06)
[2021-04-10] MEDS: lisinopriL 5 MG TABLET PO SCH (08:06)
[2021-04-10] MEDS: Sennosides 8.6 MG TABLET PO SCH ×2 (08:06→20:26)
[2021-04-10] MEDS: carvediloL 6.25 MG TABLET PO SCH ×2 (08:07→16:24)
[2021-04-10] MEDS: Gabapentin 100 MG CAPSULE PO SCH ×3 (08:07→20:25)
[2021-04-10] MEDS: Psyllium 1 PACKET POWD.PACK PO SCH ×3 (08:08→20:26)
[2021-04-10] MEDS: polyethylene glycoL 3350 17 GM POWD.PACK PO SCH (08:08)
[2021-04-10] MEDS: Neosporin OINT 15 GM TUBE TP SCH ×2 (08:11→20:26)
[2021-04-10] MEDS: Melatonin 3 MG TABLET PO SCH (20:25)
[2021-04-10] MEDS: Temazepam 15 MG CAPSULE PO PRN (20:26)
[2021-04-10] MEDS ORDERED: Hydrocortisone Acetate 25 MG RECTAL SUPPOSITORY RC PRN (22:08)
[2021-04-11 06:47] LABS: Basophils % 0.7 %; Eosinophils # 0.1 K/mcL (0.0-0.6); Eosinophils % 2.5 %; Hematocrit 38.9 % (35.3-44.9); Immature Granulocytes % 0.5 % (0-4); Lymphocytes # 2.2 K/mcL (0.6-4.6); Lymphocytes % 38.9 %; Mean Corpuscular HGB Conc 33.4 g/dL (31.6-35.5); Mean Corpuscular Hemoglobin 30.5 pg (28.0-33.3); Mean Corpuscular Volume 91.3 fL (83.0-100.0); Mean Platelet Volume 10.3 fL (9.4-12.4); Monocytes # 0.4 K/mcL (0.0-1.3); Monocytes % 7.4 %; Neutrophils # 2.8 K/mcL (1.6-8.9); Platelet Count 177 K/mcL (140-400); Red Blood Count 4.26 M/mcL (3.82-4.97); Red Cell Distribution Width 13.6 % (11.5-14.5); White Blood Count 5.7 K/mcL (4.3-11.1)
[2021-04-11 07:23] LABS: BUN/Creatinine Ratio 13 (6-26); Blood Urea Nitrogen 7 mg/dL (8-23); Calcium 9.3 mg/dL (8.6-10.3); Carbon Dioxide 29 mEq/L (23-29); Chloride 105 mEq/L (98-107); Glucose 96 mg/dL (70-105); Osmolality,Calculated 290 (280-300); Potassium 3.8 mEq/L (3.5-5.1); Sodium 141 mEq/L (136-145); eGFR For African Americans > 60 (> 60); eGFR For Non-African Americans > 60 (> 60)
[2021-04-11 07:40] VITALS: BP 122/81; PULSE 79; RESP 18; TEMP 97.4; O2SAT 94
[2021-04-11] MEDS: polyethylene glycoL 3350 17 GM POWD.PACK PO SCH (08:41)
[2021-04-11] MEDS: Psyllium 1 PACKET POWD.PACK PO SCH ×2 (08:41→15:52)
[2021-04-11] MEDS: Sennosides 8.6 MG TABLET PO SCH (08:41)
[2021-04-11] MEDS: carvediloL 6.25 MG TABLET PO SCH (08:51)
[2021-04-11] MEDS: Gabapentin 100 MG CAPSULE PO SCH ×2 (08:51→14:15)
[2021-04-11] MEDS: Aspirin Enteric Coated 81 MG Tablet PO SCH (08:51)
[2021-04-11] MEDS: lisinopriL 5 MG TABLET PO SCH (08:52)
[2021-04-11] MEDS: Neosporin OINT 15 GM TUBE TP SCH (08:53)
[2021-04-11] MEDS: Acetaminophen 325 MG TABLET PO PRN (14:15)
== END 2021-04-11 17:02 | disposition home health service (06) | DRG 57 ==
LOC: INPPIK 03-06 16:10
PROVIDERS: ADMIT Family Medicine; ATTEND Family Medicine